=== PATIENT | male | born 2005 | race Caucasian/White ===

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

== ENCOUNTER 2024-05-19 18:05 | Emergency (ER) | payer OTHER, SELFPAY ==
[2024-05-19 18:12] VITALS: BP 109/63; PULSE 83; RESP 18; TEMP 37.3; O2SAT 99; BMI 17.6
--- NOTE | 2024-05-19 18:16 | DI.RAD.S_ITS ---
PROCEDURE: XR ANKLE LT MIN 3V INDICATIONS: [place]; pain in ankle TECHNIQUE: 3 views of the ankle were acquired. COMPARISON: [facility], CR, XR ANKLE LT MIN 3V, 04/03/2019, 13:08. FINDINGS: Bones: No fractures or dislocations. Ankle mortise is normally aligned. No suspicious bony lesions. The talar dome demonstrates no josé luis abnormality. Incidental note is made of an accessory ossicle, an os trigonum. Soft tissues: No tibiotalar joint effusion. Achilles tendon appears normal. IMPRESSION: No definite plain film abnormality is seen. Dictated by: Aj Rosado M.D. on 05/19/2024 at 17:43 Approved by: Aj Rosado M.D. on 05/19/2024 at 17:43
--- NOTE | 2024-05-19 19:05 | ED_ITS ---
<Statement entered by Raheem Rios DO - 05/19/24 19:13> Dr. Rios: I was immediately available in the department for consultation. I did not actually see the patient. HPI - Extremity Injury (Lower) General Chief Complaint: Extremity Injury, Lower Stated Complaint: rolled ankle, swollen painfull Time Seen by Provider: 05/19/24 18:45 Source: patient Mode of arrival: Wheelchair History of Present Illness HPI Narrative: This is a 18-year-old male presenting to the clinic due to left ankle pain. He was jumping around [place] park when he landed awkwardly on his left ankle. States he only has left ankle pain. Denies any numbness. No injuries to his knee, hip, or any other part of his body. Related Data Home Medications Medication Instructions Recorded Confirmed loratadine 10 mg tablet (Claritin) 10 mg PO DAILY 06/28/17 10/01/19 dupilumab 200 mg/1.14 mL 200 mg SUBCUT Q2W 02/22/22 02/22/22 subcutaneous pen injector Previous Rx's Medication Instructions Recorded betamethasone dipropionate 0.05 % 1 applictn topical DAILY #90 grams 08/14/17 topical ointment mupirocin 2 % topical ointment 1 applic topical BID #30 grams 02/22/18 inhalational spacing device #1 ea 03/19/18 (Aerochamber MV spacer) hydrocortisone 2.5 % topical cream 1 applictn topical BID PRN rash 08/30/18 #30 grams albuterol sulfate 90 mcg/actuation See Rx Instructions .Route 06/17/21 aerosol inhaler .COMPLEX #8.5 grams fluocinonide 0.1 % topical cream 1 applic topical BID #60 grams 03/01/22 fluoxetine 10 mg tablet 10 mg PO DAILY #45 tabs 06/15/22 fluoxetine 20 mg tablet 20 mg PO DAILY #30 tabs 07/19/22 bacitracin zinc 500 unit-polymyxin 1 applic topical Q8H #14.2 grams 05/22/23 B 10,000 unit/gram topical ointment cephalexin 500 mg capsule 500 mg PO QID #40 caps 11/11/23 Allergies Allergy/AdvReac Type Severity Reaction Status Date / Time No Known Drug Allergies Allergy Verified 11/11/23 11:49 Review of Systems Review of Systems Narrative: GENERAL: Denies chills, fatigue, malaise, fever, sweats. HEENT: Denies sinus pain, ear pain, sore throat, difficulty swallowing, dizziness. RESPIRATORY: Denies dyspnea, cough, wheezing, hemoptysis, sputum. CARDIOVASCULAR: Denies chest pain, palpitations, orthopnea, edema, GASTROINTESTINAL: Denies nausea, vomiting, abdominal pain, diarrhea, constipation, melena. : Denies dysuria, frequency, incontinence, hematuria, urinary retention. MUSCULOSKELETAL: Reports left ankle pain SKIN: Denies rash, skin lesions, or other NEUROLOGIC: Denies weakness, headache, numbness, change in speech, confusion, seizures, incoordination. PSYCHIATRIC: No concerning psychosocial issues. 12 point review of systems is negative except for those stated above Patient History Medical History Asthma Pectus excavatum Social History Smoking Status: Current every day smoker Smoking Status: Current every day smoker tobacco type: vaping Exam Narrative Exam Narrative: GENERAL: Well-developed patient, in mild distress. HEAD: Atraumatic. Normocephalic. EYES: Pupils equal round and reactive. Extraocular motions intact. No scleral icterus. No injection or drainage. ENT: Nose without bleeding, purulent drainage. Throat without erythema, tonsillar hypertrophy or exudate. Airway patent. NECK: Trachea midline. Non tender EXTREMITIES: Mild tenderness palpation to left lateral malleolus. Achilles tendon intact neurovascularly intact throughout. NEURO: AOx3. SKIN: No rash or erythema of visible areas Initial Vital Signs Initial Vital Signs: Vital Signs Temperature 99.2 F 05/19/24 18:12 Pulse Rate 83 05/19/24 18:12 Respiratory Rate 18 05/19/24 18:12 Blood Pressure 109/63 05/19/24 18:12 Pulse Oximetry 99 05/19/24 18:12 Oxygen Delivery Method Room Air 05/19/24 18:12 Course Orders Ordered: ED Orders 05/19/24 18:16 XR ankle LT min 3V Stat Vital Signs Vital signs: Vital Signs - 8 hr 05/19/24 18:12 Temperature 99.2 F Pulse Rate 83 Respiratory Rate 18 Blood Pressure 109/63 Pulse Oximetry 99 Oxygen Delivery Method Room Air MDM - Extremity Injury (Lower) Imaging Data Extremity x-ray #1: Radiologist's Impression: [place] [id number] [place] [id number] XRay Report Signed Patient: Leno Roman MR#: [id number] : 2005 Acct:[id number] Age/Sex: 18 / M Date of Service: 05/19/24 Loc: ED Accession Number: [id number] Procedure: XR ankle LT min 3V Ordering Provider: Celi Ashley D.O. PROCEDURE: XR ANKLE LT MIN 3V INDICATIONS: [place]; pain in ankle TECHNIQUE: 3 views of the ankle were acquired. COMPARISON: [facility], CR, XR ANKLE LT MIN 3V, 04/03/2019, 13:08. FINDINGS: Bones: No fractures or dislocations. Ankle mortise is normally aligned. No s uspicious bony lesions. The talar dome demonstrates no josé luis abnormality. Incidental note is made of an accessory ossicle, an os trigonum. Soft tissues: No tibiotalar joint effusion. Achilles tendon appears normal. IMPRESSION: No definite plain film abnormality is seen. Dictated by: Aj Rosado M.D. on 05/19/2024 at 17:43 Approved by: Aj Rosado M.D. on 05/19/2024 at 17:43 [facility] Narrative Medical decision making narrative: ED course: This is a 18-year-old male presenting to the emergency department due to suspected left ankle sprain. X-rays negative. No evidence of any kind of Achilles tendon injury. Recommended supportive care. CC: Left ankle pain Complicating co-morbidities: None Data collected from: Previous notes Medical records reviewed: [Patient was not been here for similar symptoms in the past. Differential considered, but not limited to: Ankle sprain, fracture, Achilles tendon injury Exam documented above, pertinent findings include: Slight tenderness to the lateral malleolus Lab Test results independently reviewed as above. Pertinent findings: None obtained Imaging studies independently reviewed: X-rays unremarkable Scores Used: None MIPS Elements: None Consultations: None Treatments: None Re-evaluations: None Discussion: Discussed plan with the patient was comfortable with the plan Diagnosis: Left ankle sprain Disposition: see below, along with detailed discharge instructions that have been reviewed with patient as well as indications for ED re-evaluation and additional outpatient follow up Discharge Plan Departure Patient Disposition: Home Clinical Impression: Ankle sprain Activity Restrictions/Additional Instructions: Thank you for coming to the [facility] Emergency Department today. As we discussed the x-rays were negative for any fractures or dislocations. Suspect this is a mild sprain. Recommended ibuprofen, elevation, and ice as needed for the pain. Please return to the emergency department if you develop any significant numbness, significant new or worsening pain, or any other concerning signs or symptoms. I hope you feel better soon. Please follow up with your primary care provider within a week if your symptoms continue. If you do not have a primary care provider please contact the [facility] Resource line at [phone]. They will ask some questions about your medical history and help you get set up with a provider in the community. Prescriptions: No Action loratadine [Claritin] 10 mg tablet 10 mg PO DAILY mupirocin 2 % ointment 1 applic TOP BID Qty: 30 0RF dupilumab 200 mg/1.14 mL pen injector 200 mg SUBCUT Q2W fluoxetine 10 mg tablet 10 mg PO DAILY Qty: 45 1RF Rx Instructions: One tablet each morning. May increase to 2 tablets in the morning in 2 weeks fluoxetine 20 mg tablet 20 mg PO DAILY Qty: 30 1RF hydrocortisone 2.5 % cream 1 applictn TOP BID PRN (Reason: rash) Qty: 30 6RF albuterol sulfate 90 mcg/actuation HFA aerosol inhaler See Rx Instructions .ROUTE .COMPLEX Qty: 8.5 5RF Dose Instruction: INHALE 2 PUFFS BY MOUTH 4 TO 6 HOURS Rx Instructions: INHALE 2 PUFFS BY MOUTH 4 TO 6 HOURS fluocinonide 0.1 % cream 1 applic TOP BID Qty: 60 4RF Rx Instructions: APPLY TO RASH 1-2 TIMES PER DAY FOR 7-14 DAYS betamethasone dipropionate 0.05 % ointment 1 applictn TOP DAILY Qty: 90 3RF Rx Instructions: Apply to affected areas once daily for 7-10 days (DME) inhalational spacing device [Aerochamber MV] spacer See Dose Instructions .ROUTE .MEDSUPPLY Qty: 1 0RF Dose Instruction: As directed Rx Instructions: As directed bacitracin zinc-polymyxin B 500-10,000 unit/gram ointment 1 applic topical Q8H Qty: 14.2 0RF cephalexin 500 mg capsule 500 mg PO QID Qty: 40 0RF Referrals: Miscellaneous,Doctor, MD [Primary Care Provider] - Stand Alone Forms: Patient Portal/API/Survey
== END 2024-05-19 19:20 | disposition home or self-care (01) ==
PROVIDERS: Emergency Provider Physician Assistant Medical
DX: S93.402A Sprain of unspecified ligament of left ankle, initial encounter (principal); X50.1XXA Overexertion from prolonged static or awkward postures, initial encounter; Y93.44 Activity, trampolining
CPT/HCPCS: 73610; 99281; 99283